=== PATIENT | male | born 1960 | race Hispanic/Latino ===

== ENCOUNTER → 2024-01-10 | Day surgery (SDC) | payer OTHER ==
[~2024-01-10] MED LIST: EXCEDRIN MIGRA1 EAC3 PO; FISH OIL 1,0001 EAC7 PO; HYOSCYAMINE SULFATE 0.5 MG/ML INJ ONE; LIDOCAINE HCL 2% LOCAL INJ 5 ML SDV VIAL INJ ONE; PROPOFOL IV EMULSION 10 MG/ML 20 ML VIAL ONE; VIT B12 PO
[2024-01-10] MEDS: LACTATED RINGER'S 1,000 ML ONE (10:39)
[2024-01-10 12:25] VITALS: TEMP 97.6
[2024-01-10 12:40] VITALS: BP 116/82; PULSE 85; RESP 16; O2SAT 98
== END | disposition home or self-care (01) ==
LOC: OR 10:08
PROVIDERS: ATTEND Internal Medicine Gastroenterology
DX: Z12.11 Encounter for screening for malignant neoplasm of colon (principal); K63.89 Other specified diseases of intestine; E78.5 Hyperlipidemia, unspecified; G89.29 Other chronic pain; Z79.82 Long term (current) use of aspirin
CPT/HCPCS: 45385; 93005; J1980; J2003; J2704; J7121; 45378